=== PATIENT | male | born 1940 | race Caucasian/White ===

== ENCOUNTER 2021-10-06 12:28 | Emergency (ER) | payer MEDICARE, OTHER ==
[~2021-10-06] VITALS: Ht 170.2 cm; Wt 117.9 kg
--- NOTE | 2021-10-06 12:34 | NUR ---
BIBRA 858, HOMELESS, BLE SWELLING AND PAIN. TAKES LASIX. TO ER BED 8, HOOKED TO MONITOR, CHANGED TO HOSP GOWN, WARM BLANKET PROVIDED. PATIENT AAOx4. BREATHING EVEN AND UNLABORED. AWAITING MD PLUMMER.
[2021-10-06 14:02] LABS: BASOPHILS # (AUTO) 0.1 K/uL (0.0-0.2); EOSINOPHILS % (AUTO) 2.6 % (0.0-6.0); HEMATOCRIT 26 % (39-51); HEMOGLOBIN 7.9 g/dL (13.5-17.5); LYMPHOCYTES % (AUTO) 18.1 % (20.0-44.0); MEAN CORPUSCULAR HGB CONC 30 g/dl (31.0-36.0); MEAN CORPUSCULAR VOLUME 76 fL (80-96); MONOCYTES # (AUTO) 0.5 K/uL (0.1-1.30); MONOCYTES % (AUTO) 8.5 % (2.0-12.0); NEUTROPHILS # (AUTO) 3.9 K/uL (1.8-8.9); NEUTROPHILS % (AUTO) 69.8 % (43.0-81.0); PLATELET COUNT (AUTO) 183 K/uL (150-450); RED BLOOD CELL COUNT(AUTO) 3.47 MIL/uL (4.5-6.0); WHITE BLOOD COUNT (AUTO) 5.6 K/uL (4.3-11.0)
[2021-10-06 14:13] LABS: CARBON DIOXIDE 28 mmol/L (21-32); CHLORIDE 107 mmol/L (98-107); CREATININE 0.9 mg/dL (0.6-1.3); GLUCOSE 100 mg/dL (74-106); POTASSIUM 3.7 mmol/L (3.5-5.1); SODIUM SERUM 141 mmol/L (136-145); UREA NITROGEN, BLOOD 11 mg/dL (7-18)
[2021-10-06 14:27] LABS: ALANINE AMINOTRANSFERASE 12 U/L (12-78); ALKALINE PHOSPHATASE 70 U/L (46-116); ASPARTATE AMINOTRANSFERASE 15 U/L (15-37); BILIRUBIN,DIRECT 0.1 mg/dL (0.0-0.2); BILIRUBIN,TOTAL 0.4 mg/dL (0.2-1.0); TOTAL PROTEIN, SERUM 6.6 g/dL (6.4-8.2)
[2021-10-06] MEDS ORDERED: HYDR-3980 PO (14:45)
[2021-10-06] MEDS ORDERED: FURO-144 PO (14:45)
--- NOTE | 2021-10-06 15:02 | NUR ---
CONTACTED PEPE NICHOLS TO ASSIST PATIENT WITH DISCHARGE
--- NOTE | 2021-10-06 15:52 | NUR ---
SIMONE CANTU AT BEDSIDE
--- NOTE | 2021-10-06 16:21 | NUR ---
SS consult: SS Consult requested for homelessness. The pt. is a 80-year-old male patient who was BIBRA to the ED with complaints of BLE swelling pain. SW was notified by nurse that the pt. was having trouble ambulating. SW attempted to obtain wheelchair for pt. and pt. was provided with taxi transport to : [address] [place] [address]. Upon SS consult, the pt. is Alert & Oriented x 4 and makes good eye contact due to drowsiness. The pt. appears unkempt with euthymic mood & affect. Pt. denies SI/HI and denies hallucinations. Pt. has good insight & judgement. SW explored pt.'s living situation. Patient states he is currently experiencing homelessness living at an encampment located at [address] [place] [address]. SW explored pt.'s mental health Hx. and pt. denies any mental illness or taking medication. SW explored pt.'s drug & ETOH use. Pt. denies any drug use and alcohol use. Pt. is not ambulatory at this time due to edema and pain. Pt. was provided with wheelchair. Per pt. he is otherwise independent with all his ADL's. SW explored pt.'s support system. Pt. states he has a daughter in [place] and he will move in with her soon. Plan: SIMONE provided pt. with pt. was provided with taxi transport to : [address] [place] [address] to return to his encampment. SIMONE also provided pt. with homeless resources to halfway, food razo, showers etc. and pt. accepted resources. Pt. signed homeless waiver and it was placed in the pt.'s chart. Year-round shelters: [facility] [address] [place], [place] [phone] ; [facility] [address] [place] [address]; [place] [facility] [facility]. [facility] [address] Hygiene: [facility]: [address] [place] ; [facility] [address] [facility] ; [facility] [address] . Food Resources: [place] [facility] at [facility]- [address] [place]; Meet Each Need with Dignity ([facility]) [address] [place]; [facility] [address] [facility]; [facility] 4936 [facility]. Mental Health resources provided: [facility] [address] [place], [place] [address] ; [facility] [address] [facility] [address], [place], [place] [id number] ; [facility] [address] [facility] [place], [place] [phone] ; [facility] [address] [place], [place] [address] Healthcare Clinics: [facility] [address] [facility], [address] [place]. [place] ; [facility] [address] [facility] [address] [place] [address]; [facility] [place] [address] [facility]. [place] [phone] Counseling--Outpatient [facility] [address], [address] [place], [place] [id number] (Specializes in in-depth psychotherapy for emotional distress: anxiety, depression, interpersonal conflicts, life transitions, childhood abuse) [facility] [address] [place] [address] (Assist with solving problem marital difficulties, separation & divorce, aging parents, & grief, chronic & terminal illness) [facility] [address] [place] [address] (Deal with loss & grief, anxiety, marital difficulties) Homebound/Mental Health Services [address] [facility], [address] [place], [place] [id number] (Provide in-home mental services to people who are incapable of leaving their homes) [facility] [address] [place] [address] [facility] [address] [place] [address] PSYCHIATRIC OUTPATIENT SERVICES [facility] Partial Hospitalization and Intensive Outpatient Program (Managed Care and [place] Only)[address] [facility] [phone] [facility] Partial Hospitalization and Outpatient [address] [place], [place] [phone] [facility] [place] O[address] [place], [place] [phone] [facility] Partial Hospitalization and Outpatient Hijormp[address] [place], [phone] Substance Abuse resources provided included: [facility] Substance Abuse Self-Helpline ([facility]) ; [facility] [address] [facility]. [place] [address] ; [facility] [address] [facility] [address] ; [facility] [place] [place] [facility] [address] [address] [facility] [address] ; [facility] [address] [facility] [address] ; [facility] [address] [facility] [address] ; [facility] [place] [address] [facility] [phone] ; [facility] Substance Abuse Helpline([facility] ; [facility] ; [facility]; [facility] [place]; [facility] Marlo Richardsaliza; [facility] [place]; [place]; [facility] [place]; [facility], [facility]. Maureen Champion; Alcoholics Anonymous -[facility]; Ot-Ktze-Ihpoxdr ; Marijuana Anonymous [facility]; Narcotics Anonymous www.na.org;
--- NOTE | 2021-10-06 16:53 | NUR ---
Patient given written and verbal discharge instructions. Patient verbalizes understanding of instructions. Patient is ambulatory with steady gait. Refuses offer of penitentiary placement. Patient given list of available shelters in surrounding area. patient provided w wheelchair, all belongings given back to patient. Name band removed.
--- NOTE | 2021-10-06 16:55 | NUR ---
TAXI VOUCHER PROVIDED TO THE PATIENT.
[2021-10-06 17:00] VITALS: BP 121/80
== END 2021-10-06 17:00 | disposition home or self-care (01) ==
LOC: ER 13:14
DX: R60.0 Localized edema (principal); Z20.822 Contact with and (suspected) exposure to COVID-19; Z59.00 Homelessness unspecified; Z91.14 Patient's other noncompliance with medication regimen; I11.9 Hypertensive heart disease without heart failure; E87.70 Fluid overload, unspecified; M25.569 Pain in unspecified knee; G89.29 Other chronic pain
CPT/HCPCS: 36415; 71045-TC; 80048-TC; 80076-TC; 83880; 84484-TC; 85025-TC; C9803